=== PATIENT | female | born 1950 | race Caucasian/White ===

== ENCOUNTER → 2019-04-20 15:42 | Outpatient (CLI) | payer MEDICARE, SELFPAY ==
[2019-04-20 16:57] LABS: EXAGEN MAILED SPECIMEN
== END ==
PROVIDERS: Family Provider Family Medicine; PCP Family Medicine; Referring Provider Internal Medicine Rheumatology; Visit Provider Internal Medicine Rheumatology
DX: M06.4 Inflammatory polyarthropathy (principal); I10 Essential (primary) hypertension; E78.5 Hyperlipidemia, unspecified; E03.9 Hypothyroidism, unspecified; M21.40 Flat foot [pes planus] (acquired), unspecified foot; K51.90 Ulcerative colitis, unspecified, without complications; R76.8 Other specified abnormal immunological findings in serum
CPT/HCPCS: 36415

== ENCOUNTER → 2019-11-30 13:13 | Outpatient (CLI) | payer MEDICARE, SELFPAY ==
--- NOTE | 2019-11-30 13:18 | CT_ITS ---
STUDY: CT MAXILLOFACIAL SINUSES REASON FOR EXAM: Female, 69 years old. SINUSITIS -- SURG- SINUS X30 YRS AGO RADIATION DOSAGE (If Supplied By Facility): CTDIvol = ( 33.45 ) mGy, DLP = ( 776.37 ) mGycm TECHNIQUE: The patient was scanned in a multi detector CT scanner. High resolution axial imaging was performed without the administration of intravenous contrast material. Sagittal and coronal images were reconstructed. Individualized dose optimization techniques were used for this CT. COMPARISON: None. FINDINGS: Evidence of bilateral antrectomies. FRONTAL SINUSES: Normal aeration, without mucosal inflammatory disease. ETHMOIDAL SINUSES: Normal aeration, without mucosal inflammatory disease. MAXILLARY SINUSES: Normal aeration, without mucosal inflammatory disease. SPHENOIDAL SINUSES: Normal aeration, without mucosal inflammatory disease. There is patency of the bilateral maxillary infundibuli with normal uncinate processes, ethmoid bullae, and hiatus semilunaris. Normal bilateral middle turbinates. Normal bilateral inferior turbinates. Normal midline nasal septum. There is patency of the bilateral nasal airways. The visualized osseous structures are normal. The visualized bilateral orbital contents are normal. CT/Sinus/Facial Bone IMPRESSION: Normal CT examination of the maxillofacial sinuses. Electronically Signed: Randell Carpenter MD at 13:54 EDT , Service support ,
== END ==
PROVIDERS: PCP Family Medicine; Referring Provider Otolaryngology; Visit Provider Otolaryngology
DX: J32.9 Chronic sinusitis, unspecified (principal)
CPT/HCPCS: 70486

== ENCOUNTER → 2019-12-25 10:31 | Outpatient (CLI) | payer MEDICARE, SELFPAY | PROVIDERS: PCP Family Medicine; Referring Provider Otolaryngology; Visit Provider Otolaryngology | DX: Z11.59 Encounter for screening for other viral diseases (principal) | CPT/HCPCS: 87635; C9803; U0003 ==

== ENCOUNTER → 2021-02-01 12:49 | Outpatient (CLI) | payer MEDICARE, SELFPAY ==
--- NOTE | 2021-02-01 12:50 | CT_ITS ---
STUDY: CT ABDOMEN AND PELVIS WITH CONTRAST REASON FOR EXAM: Female, 70 years old. 18 month history of abdominal pain. RADIATION DOSAGE (If Supplied By Facility): CTDIvol = ( 10.92 ) mGy, DLP = ( 729.54 ) mGycm TECHNIQUE: Transaxial images were obtained from the dome of the diaphragm to the symphysis pubis with oral contrast. Oral and amp; IV Readi-CAT and amp; 100mL Isovue-300 was administered. Sagittal and coronal images were reconstructed. Individualized dose optimization techniques were used for this CT. COMPARISON: None. FINDINGS: The visualized lung bases are unremarkable. The visualized portions of the heart are within normal limits. Normal liver. There are surgical clips in the gallbladder fossa consistent with a prior cholecystectomy. Normal spleen. Normal pancreas. Normal bilateral adrenal glands. Normal right kidney. Normal left kidney. There is a small hiatal hernia. Normal small intestine. Findings suggestive of a colitis of the rectosigmoid colon and descending colon. The appendix is visualized and appears normal. There is scattered atherosclerotic calcification of the abdominal aorta, without a demonstrated aneurysm. Normal inferior vena cava. Normal retroperitoneum. Normal urinary bladder. There is absence of the uterus consistent with a prior hysterectomy. There is a small umbilical hernia containing fat. There are diffuse degenerative changes of the visualized lumbar spine. CT/Abdomen/Pelvis W IV Cont ONLY IMPRESSION: Findings suggestive of a colitis involving the left hemicolon. Clinical correlation is suggested. Electronically Signed: Mainor Little MD at 14:12 EDT , Service support ,
[2021-02-01 13:06] LABS: CREATININE FINGERSTICK 0.9 mg/dL (0.55-1.02); EGFR FINGERSTICK > 60.0000 mL/min (>60)
== END ==
PROVIDERS: PCP Family Medicine; Referring Provider Internal Medicine Gastroenterology; Visit Provider Internal Medicine Gastroenterology
DX: R10.9 Unspecified abdominal pain (principal)
CPT/HCPCS: 74177; Q9967

== ENCOUNTER 2021-02-15 08:58 | Day surgery (SDC) | payer MEDICARE, SELFPAY ==
[2021-02-15] MEDS: Lactated Ringers 1,000 ML 15 ML IV (09:10)
[2021-02-15 09:26] VITALS: BP 136/69; PULSE 81; RESP 16; TEMP 36; O2SAT 98; BMI 24.5
--- NOTE | 2021-02-15 10:00 | COLBX_PTH ---
PATIENT: CLAIR COELLO LOC: EN U#:[id number] AGE/SX: 70/F ROOM: RE02/15/[address]: Dr. Edwin Robledo DO : 1950 BED: DIS: 02/15/2021 SPEC #: [id number] RECD: 02/15/21 12:06 STATUS: HEATHER REErnie #: [id number] MARINO: 02/15/21 10:[address]: Edwin Robledo DEPT: SURGICAL PATHOLOGY RECD BY: Liz Taylor ENTERED: 02/15/21 13:41 SP TYPE: COLON BX OTHR DR: Dr. Quintin Murphy MD Tissues: A - Transverse colon B - Ileum, NOS C - COLON BIOPSY Procedures: Surgery Specimen Level IV HEADER OPERATION: Colonoscopy (MAC) PRE-OP DIAGNOSIS: Abdominal pain TISSUE SUBMITTED: A - Transverse colon polyp, B - Terminal ileum biopsy, C - Random colon biopsies MICROSCOPIC DIAGNOSIS A. Transverse colon polyp, biopsy: Fragments of inflammatory pseudopolyp. B. Terminal ileum, biopsy: Fragments of small intestinal mucosa, no pathologic diagnosis. C. Lung, random biopsy: Fragments of colonic mucosa, no pathologic diagnosis. MARY:deny 02/16/2021 MICROSCOPIC DESCRIPTION Slides are reviewed. GROSS DESCRIPTION A - Received in fixative is one container labeled with the patient's name and designated transverse colon polyp. The specimen consists of multiple irregular fragments of light elmore soft tissue that in aggregate measure 1 x 0.3 x 0.1 cm. The specimen is totally submitted in one cassette. B - Received in fixative is one container labeled with the patient's name and designated terminal ileum biopsy. The specimen consists of multiple irregular fragments of light elmore soft tissue that in aggregate measure 1 x 0.2 x 0.1 cm. The specimen is totally submitted in one cassette. C - Received in fixative is one container labeled with the patient's name and designated random colon biopsy. The specimen consists of multiple irregular fragments of light elmore soft tissue that in aggregate measure 2.5 x 1 x 0.1 cm. The specimen is totally submitted in one cassette. / MARY:deny 02/15/21 TC:5 CPT: 17360 x3
--- NOTE | 2021-02-15 10:12 | PCM.HP.BLA ---
History and Physical Date of Admission: 02/15/21 Allergies levofloxacin [From Levaquin] Allergy (Intermediate, Verified 01/19/21 13:32) Nausea Sulfa (Sulfonamide Antibiotics) Allergy (Intermediate, Verified 01/19/21 13:32) Nausea, vomiting, diarrhea sulfasalazine [From Azulfidine] Allergy (Intermediate, Verified 01/19/21 13:32) Nausea, Vomiting, diarrhea Medications amlodipine 2.5 mg tablet 2.5 mg PO DAILY 01/18/21 [History Confirmed 01/19/21] calcium carbonate 500 mg (1,250 mg)-vitamin D3 125 unit tablet 1 tab PO DAILY 01/18/21 [History Confirmed 01/19/21] cholecalciferol (vitamin D3) 50 mcg (2,000 unit) capsule 50 mcg PO DAILY 01/18/21 [History Confirmed 01/19/21] clonazepam 1 mg tablet 1 mg PO QHS 01/18/21 [History Confirmed 01/19/21] hyoscyamine sulfate 0.125 mg disintegrating tablet 0.125 mg PO BID-QID PRN 01/18/21 [History Confirmed 01/19/21] multivitamin 1 tab PO DAILY 01/18/21 [History Confirmed 01/19/21] omeprazole 40 mg capsule,delayed release 40 mg PO BID 01/18/21 [History Confirmed 01/19/21] ondansetron 4 mg disintegrating tablet 4 mg PO Q8H 01/18/21 [History Confirmed 01/19/21] simvastatin 20 mg tablet 20 mg PO QHS 01/18/21 [History Confirmed 01/19/21] thyroid (pork) 30 mg tablet 30 mg PO DAILY 01/18/21 [History Confirmed 01/19/21] [facility] Medical History (Updated 01/19/21 @ 14:[address] Pineda Friend, DO) Abdominal pain Abdominal pain Asthmatic bronchitis Back pain Cervical radiculopathy Coronary vasospasm Hypercalcemia Hyperlipidemia Hypothyroid IBS (irritable bowel syndrome) Lumbosacral radiculitis Menopause Metabolic syndrome Migraine Nasal polyps Osteopenia Shoulder impingement syndrome Ulcerative colitis Surgical History History of cardiac cath History of dilation and curettage History of hysterectomy HPI HPI Details: CLAIR COELLO, is a 70 F who presents to the office today for the evaluation of abdominal pain. Her symptoms began last August 2019. she began having heartburn and diarrhea with abdominal pain and cramping and nausea that was continuous. She saw a gastroenterology who has prescribed many medications to address diarrhea. She has never had a CAT scan of her abdomen pelvis. Heartburn resolved after cholecystectomy 09/2020. Continued symptoms include abdominal pain, cramping and nausea with diarrhea occurring every few weeks lasting for about a day but causes insomnia. She has not had stool studies studies for enteric pathogens. Her colonoscopy and EGD performed in the last year and she reports findings were normal. Gastric emptying showed she empties too quickly. History of ulcerative colitis diagnosed 1987. Medications that she has tried without effect include lansoprozol, omeprazole, pepcid, viberzi, xifaxan, amitriptyline, cymbalta, nortriptyline. ROS Const Constitutional: Positive for fatigue Eyes Eyes: Positive for irritation ENT ENT: Positive for tinnitus Gastro GI: Positive for abdominal pain, bloating, heartburn and nausea/dyspepsia Musc Musculoskeletal: Positive for joint pain, joint swelling, muscle cramps and Arthritis Endo Endocrine: Positive for cold intolerance, fatigue and heat intolerance Michael/Lymp Hematologic/Lymphatic: Positive for easy bruising Exam Const General: cooperative and comfortable Nutritional Appearance: average body habitus and well nourished [facility] Head: normal to inspection Ears: hearing grossly normal bilaterally Nose: external nose normal Face and sinus: normal facial exam Mouth: oral mucosae normal Throat: posterior oropharynx normal Eyes General: appearance normal, both eyes and all related structures Neck Neck: normal visual inspection Chest Chest palpation & inspection: normal inspection of the chest and normal palpation of entire chest wall Resp Effort & Inspection: normal respiratory effort Auscultation: Bilateral: Clear to Auscultation Cardio Palpation: normal PMI Rate: regular rate Rhythm: regular rhythm GI Inspection: normal to inspection Auscultation: normal bowel sounds Percussion: normal to percussion Palpation: no hepatosplenomegaly Skin General: no rashes or lesions noted Neuro General: patient alert Extrem General: normal to inspection Psych Affect: normal affect Assessment and Plan Assessment and Plan (1) Abdominal pain: Status: Acute Orders: Orders: Abdomen/Pelvis W IV Cont ONLY Today Comprehensive Metabolic Profil Today CRP Today LDH Today CBC W/Diff, Automated Today Erythrocyte Sed Rate Today Plan - Dr. Pineda Friend, DO: I suspect that she does have IBS with diarrhea or mixed constipation or diarrhea. She does take probiotics and some digestive enzymes that have been helping her with all her issues and regarding her diarrhea. However she still gets abdominal pain. Lymph exam she does have a little bit of tenderness in the bilateral lower quadrants however but no alarm signs such as rebound or guarding were seen. We will get a CT scan abdomen pelvis along with an ESR and CRP and CBC and CMP. (2) Abdominal pain: Status: Acute Orders: Orders: Abdomen/Pelvis W IV Cont ONLY Today Comprehensive Metabolic Profil Today CRP Today LDH Today CBC W/Diff, Automated Today Erythrocyte Sed Rate Today This is an updated H&P from the patient was seen in office.
[2021-02-15 10:55] VITALS: BP 125/62; BP 136/69; PULSE 74; RESP 16; TEMP 35.9; O2SAT 100
--- NOTE | 2021-02-15 10:55 | OP.COLON_ITS ---
Patient Name: Kmi Enrique Procedure Date: 02/15/2021 10:19 AM Date of : 1950 Age: 70 Procedure: Colonoscopy Indications: Chronic diarrhea Providers: Edwin Robledo DO Medicines: See the Anesthesia note for documentation of the administered medications Patient Profile: This is a 70 year old female. Refer to note in patient chart for documentation of history and physical. Last Colonoscopy: 3 years ago. Complications: No immediate complications. Procedure: Pre-Anesthesia Assessment: - Prior to the procedure, a History and Physical was performed, and patient medications and allergies were reviewed. The patient is competent. The risks and benefits of the procedure and the sedation options and risks were discussed with the patient. All questions were answered and informed consent was obtained. Patient identification and proposed procedure were verified by the physician in the pre-procedure area. Mental Status Examination: alert and oriented. Airway Examination: normal oropharyngeal airway and neck mobility. Respiratory Examination: clear to auscultation. CV Examination: normal. Prophylactic Antibiotics: The patient does not require prophylactic antibiotics. Prior Anticoagulants: The patient has taken no previous anticoagulant or antiplatelet agents. ASA Grade Assessment: II - A patient with mild systemic disease. After reviewing the risks and benefits, the patient was deemed in satisfactory condition to undergo the procedure. The anesthesia plan was to use moderate sedation / analgesia (conscious sedation). Immediately prior to administration of medications, the patient was re-assessed for adequacy to receive sedatives. The heart rate, respiratory rate, oxygen saturations, blood pressure, adequacy of pulmonary ventilation, and response to care were monitored throughout the procedure. The physical status of the patient was re-assessed after the procedure. After I obtained informed consent, the scope was passed under direct vision. Throughout the procedure, the patient's blood pressure, pulse, and oxygen saturations were monitored continuously. The pediatric colonoscope was introduced through the anus and advanced to the terminal ileum. The colonoscopy was performed without difficulty. The patient tolerated the procedure well. The quality of the bowel preparation was adequate, except for the cecal cap. There was some liquid and a hard stool that could not be evacuated. Moderate Sedation: Moderate (conscious) sedation was administered by the endoscopy nurse and supervised by the endoscopist. The patient's oxygen saturation, heart rate, blood pressure and response to care were monitored. Total physician intraservice time was 15 minutes. Scope In: 10:32:15 AM Scope Withdrawal Time 0 hours 8 minutes 33 seconds Scope Out: 10:50:18 AM Total Procedure Duration Time 0 hours 18 minutes 3 seconds Findings: The perianal and digital rectal examinations were normal. An area of moderately congested mucosa was found in the sigmoid colon. This was biopsied with a cold forceps for histology. Verification of patient identification for the specimen was done. Estimated blood loss was minimal. The terminal ileum appeared normal. This was biopsied with a cold forceps for histology. Verification of patient identification for the specimen was done. Estimated blood loss was minimal. The exam was otherwise without abnormality on direct and retroflexion views. A 5 mm polyp was found in the transverse colon. The polyp was sessile. The polyp was removed with a hot snare. Resection and retrieval were complete. Verification of patient identification for the specimen was done. Estimated blood loss was minimal. Impression: - Congested mucosa in the sigmoid colon. Biopsied. - The examined portion of the ileum was normal. Biopsied. - The examination was otherwise normal on direct and retroflexion views. - One 5 mm polyp in the transverse colon, removed with a hot snare. Resected and retrieved. Recommendation: - Repeat colonoscopy in 5 years for surveillance. - Return to GI office in 2 weeks. - Continue present medications. Procedure Code(s): --- Professional --- 19179, 59, Colonoscopy, flexible; with removal of tumor(s), polyp(s), or other lesion(s) by snare technique 58753, 59, Colonoscopy, flexible; with biopsy, single or multiple G0500, Moderate sedation services provided by the same physician or other qualified health acute care physical therapist performing a gastrointestinal endoscopic service that sedation supports, requiring the presence of an independent trained observer to assist in the monitoring of the patient's level of consciousness and physiological status; initial 15 minutes of intra-service time; patient age 5 years or older (additional time may be reported with 53843, as appropriate) Diagnosis Code(s): --- Professional --- K63.89, Other specified diseases of intestine D12.3, Benign neoplasm of transverse colon (hepatic flexure or splenic flexure) CPT copyright 2017 [employer]. All rights reserved. The codes documented in this report are preliminary and upon telephone triage nurse review may be revised to meet current compliance requirements. Edwin Robledo DO 02/15/2021 10:54:40 AM This report has been signed electronically. Number of Addenda: 1 Note Initiated On: 02/15/2021 10:19 AM Addendum Number: 1 Addendum Date: 12/15/2021 6:10:03 AM MAC was used instead of moderate sedation for this patient. Edwin Robledo DO 12/15/2021 6:10:16 AM This report has been signed electronically.
--- NOTE | 2021-02-15 10:55 | OP.CCLET_ITS ---
12/15/2021 Quintin Murphy Re : Colonoscopy procedure for Kim Enrique Dear Jeffrey This procedure was performed on Monday, February 15, 2021. My impressions and recommendations are as follows: Impressions : - Congested mucosa in the sigmoid colon. Biopsied. - The examined portion of the ileum was normal. Biopsied. - The examination was otherwise normal on direct and retroflexion views. - One 5 mm polyp in the transverse colon, removed with a hot snare. Resected and retrieved. Recommendations : - Repeat colonoscopy in 5 years for surveillance. - Return to GI office in 2 weeks. - Continue present medications. My findings are described in the full procedure note, which is enclosed. If I can be of further assistance, please feel free to contact me at . Sincerely, Edwin Friend, 02/15/2021 10:54:40 AM This report has been signed electronically.
[2021-02-15 11:00] VITALS: BP 126/70; BP 136/69; PULSE 71; RESP 16; O2SAT 100
[2021-02-15 11:05] VITALS: BP 128/67; BP 136/69; PULSE 73; RESP 16; O2SAT 100
[2021-02-15 11:10] VITALS: BP 136/69; BP 138/69; PULSE 79; RESP 16; TEMP 36.3; O2SAT 100
[2021-02-15 11:47] VITALS: BP 136/69
== END 2021-02-15 11:50 | disposition home or self-care (01) ==
LOC: EN 09:00 → AC 09:01
PROVIDERS: PCP Family Medicine; Referring Provider Family Medicine; Visit Provider Internal Medicine Gastroenterology
PROC: 0DJD8ZZ Inspection of Lower Intestinal Tract, Via Natural or Artificial Opening Endoscopic (ICD-10-PCS; CPT 45378; principal; 2021-02-15 09:55)
DX: K63.5 Polyp of colon (principal); E78.00 Pure hypercholesterolemia, unspecified; M54.12 Radiculopathy, cervical region; E03.9 Hypothyroidism, unspecified; K58.9 Irritable bowel syndrome, unspecified; I10 Essential (primary) hypertension; M06.4 Inflammatory polyarthropathy; Z79.899 Other long term (current) drug therapy
CPT/HCPCS: 45380; 45385; 88305; J7120; J2405

== ENCOUNTER → 2021-02-23 10:23 | Outpatient (CLI) | payer MEDICARE, SELFPAY ==
[2021-02-23 11:52] LABS: Erythrocyte Sedimentation Rate 12 mm/hr (0-30)
[2021-02-23 11:56] LABS: Absolute Lymphocyte Count 2.48 X10^3/uL (0.83-4.51); Absolute Neutrophil Count 10.1 X10^3/uL (2.0-7.7); Basophil# 0.02 X10^3/uL; Basophil% 0.1 % (0-1); Eosinophil# 0.09 X10^3/uL; Eosinophils% 0.6 % (0-5); Hematocrit 41.4 % (37-47); Hemoglobin 12.9 g/dL (12.0-15.0); Lymphocyte # 2.48 X10^3/ul (0.83-4.51); Lymphocyte % 17.9 % (19-41); Mean Corp Hgb Conc 31.2 g/dL (32-36); Mean Corpuscular Hgb 27.9 pg (27.0-32.0); Mean Corpuscular Volume 89.4 fL (81-99); Monocyte% 7.2 % (0-10); NRBC Flagged by Analyzer 0 % (0-5); Neutrophil # 10.12 X10^3/uL (2.7-7.7); Neutrophil % 73.1 % (47-70); Platelet Count 385 K/mm3 (150-450); RBC Distribution Width CV 14.6 % (11.6-14.6); RBC Distribution Width SD 46.6 fl (35.1-43.9); Red Blood Count 4.63 M/mm3 (4.2-5.4); White Blood Count 13.9 K/mm3 (4.4-11.0)
[2021-02-23 12:23] LABS: ALB/GLOB Ratio 0.9 RATIO (0.9-2.4); AST(SGOT) 16 U/L (15-37); Alanine Aminotransfer ALT/SGPT 34 U/L (13-56); Albumin, Serum 3.3 g/dL (3.2-5.0); Alkaline Phosphatase 80 U/L (45-117); Anion Gap 7 (5-15); BUN 19 mg/dL (7-18); BUN/Creat Ratio 22.7 RATIO (10-20); CRP < 2.90 mg/L (0.0-3.0); Calcium,Total 9.1 mg/dL (8.5-10.1); Chloride 105 mmol/L (98-107); Creatinine, Serum 0.84 mg/dL (0.55-1.02); EST Glomerular Filtration Rate 72 mL/min (>60); Est Glom Filt Rate - Afr Amer 87 mL/min (>60); Globulin 3.5 g/dL (2.2-4.2); Glucose 99 mg/dL (74-106); LDH 229 U/L (84-246); Potassium 3.6 mmol/L (3.5-5.1); Protein, Total 6.8 g/dL (6.4-8.2); Sodium Level 141 mmol/L (136-145)
== END ==
PROVIDERS: PCP Family Medicine; Referring Provider Internal Medicine Gastroenterology; Visit Provider Internal Medicine Gastroenterology
DX: R10.9 Unspecified abdominal pain (principal); K51.90 Ulcerative colitis, unspecified, without complications
CPT/HCPCS: 36415; 80053; 83615; 85025; 85652; 86140

== ENCOUNTER → 2022-02-02 | Outpatient (CLI) | payer MEDICARE, SELFPAY ==
[2022-02-12 08:07] LABS: Alternaria alternata <0.10 kU/L (Class 0); Aspergillus fumigatus <0.10 kU/L (Class 0); Bahia Grass <0.10 kU/L (Class 0); Beef <0.10 kU/L (Class 0); Bermuda Grass <0.10 kU/L (Class 0); Bluegrass, Kentucky <0.10 kU/L (Class 0); Cat Hair/Dander, Standard <0.10 kU/L (Class 0); Cedar, Mountain <0.10 kU/L (Class 0); Cladosporium herbarum <0.10 kU/L (Class 0); Cockroach, American <0.10 kU/L (Class 0); Corn <0.10 kU/L (Class 0); D farinae Mite <0.10 kU/L (Class 0); D pteronyssinus <0.10 kU/L (Class 0); Dog Epithelia <0.10 kU/L (Class 0); Egg, Whole 0.26 kU/L (Class 0/I); Elm, American White <0.10 kU/L (Class 0); Hazelnut Tree <0.10 kU/L (Class 0); Hickory, White <0.10 kU/L (Class 0); Johnson Grass <0.10 kU/L (Class 0); Maple/Box Elder <0.10 kU/L (Class 0); Milk (Cow) 0.34 kU/L (Class I); Mucor racemosus <0.10 kU/L (Class 0); Mugwort <0.10 kU/L (Class 0); Mulberry, White <0.10 kU/L (Class 0); Nettle <0.10 kU/L (Class 0); Oak, White <0.10 kU/L (Class 0); Peanut <0.10 kU/L (Class 0); Penicillium chrysogen <0.10 kU/L (Class 0); Pigweed, Rough <0.10 kU/L (Class 0); Plantain, English <0.10 kU/L (Class 0); Pork <0.10 kU/L (Class 0); Ragweed, Short/Common <0.10 kU/L (Class 0); Sheep Sorrel(Dock) <0.10 kU/L (Class 0); Soybean <0.10 kU/L (Class 0); Stemphylium herbarum <0.10 kU/L (Class 0); Sweet Gum <0.10 kU/L (Class 0); Sycamore, American <0.10 kU/L (Class 0); Wheat 0.14 kU/L (Class 0/I)
[2022-02-13 18:30] LABS: Chocolate <0.10 kU/L (Class 0)
== END | disposition home or self-care (01) ==
LOC: LAB 11:35
PROVIDERS: PCP Family Medicine; Visit Provider Internal Medicine Gastroenterology
DX: R19.7 Diarrhea, unspecified (principal); R10.9 Unspecified abdominal pain
CPT/HCPCS: 36415; 86003; 86005

== ENCOUNTER → 2022-08-03 | Outpatient (CLI) | payer MEDICARE, SELFPAY ==
--- NOTE | 2022-08-03 11:39 | NM_ITS ---
CLINICAL: 72-year-old female with history of abdominal pain, bloating, nausea and clinical gastroparesis. SEMI-SOLID PHASE 99m Tc SULFUR COLLOID GASTRIC EMPTYING STUDY COMPARISON: None available FINDINGS: The patient was administered 1.1 mCi of 99m Tc sulfur colloid mixed with oatmeal and consumed per os. Image acquisitions in the anterior-posterior projections were obtained for 60 minutes. There is prompt visualization of the stomach. There is no gastroesophageal reflux identified. The T ? raw data emptying was calculated to be 38.68 minutes, (Normal: 12-56 minutes). NM/Gastric Emptying Study IMPRESSION: 1. NORMAL 99m Tc sulfur colloid semi-solid phase (oatmeal) gastric emptying imaging examination. A. There is normal and preserved semi-solid phase gastric emptying compared to normal controls. (Zoya et al, J Nucl Med Tech 38: 186, 2010). Electronically Signed: Nathanael Robertson, at 11:12 EDT ,
== END | disposition home or self-care (01) ==
PROVIDERS: PCP Family Medicine; Referring Provider Internal Medicine Gastroenterology; Visit Provider Internal Medicine Gastroenterology
DX: K31.84 Gastroparesis (principal)
CPT/HCPCS: 78264; A9541

== ENCOUNTER → 2023-11-20 | Outpatient (CLI) | payer MEDICARE, SELFPAY ==
--- NOTE | 2023-11-20 15:44 | CT_ITS ---
INDICATION: CHRONIC SINUSITIS EXAMINATION: CT FACIAL BONES - CT Maxillofacial W/O Contrast Injection TECHNIQUE: Helically acquired images were obtained of the facial bones. A radiation dose optimization technique was used for this scan. The protocol utilizes one or more of the following dose reduction techniques: automated exposure control, adjustment of mA and/or kV according to patient size,and/or use of iterative reconstruction technique. IV Contrast dosage and agent: None. RADIATION DOSAGE (If Supplied By Facility): CTDIvol = ( 33.06 ) mGy, DLP = ( 837.98 ) mGycm COMPARISON: Prior study dated: 11/30/2019 FINDINGS: SOFT TISSUES: No focal subcutaneous swelling. No discrete fluid collections. VISUALIZED PARANASAL SINUSES: There is near complete opacification of the ethmoid air cells. Opacified right frontal sinus with associated cortical thickening. The appearance is similar to the 2019 study. The left frontal sinus is clear. The sphenoid sinuses and drainage pathways are clear. The left maxillary sinus is clear status post [facility] resection. Right-sided [facility] resection as well with mild mucoperiosteal thickening anteriorly. VISUALIZED MASTOID AIR CELLS: Clear. FACIAL BONES, MANDIBLE AND TMJs: No displaced facial bone fracture. No lytic or blastic abnormality. VISUALIZED DENTITION: No periodontal osseous erosion. ORBITAL CONTENTS: Both globes, extraocular muscles and retrobulbar fat appear unremarkable. CT/Sinus/Facial Bone IMPRESSION: Similar appearance to previous imaging. Chronic opacification of the bilateral ethmoid air cells and right frontal sinus with cortical thickening. Electronically Signed: Grant Gallo MD at 10:13 EDT ,
== END | disposition home or self-care (01) ==
LOC: CT 15:42
PROVIDERS: PCP Family Medicine; Referring Provider Otolaryngology; Visit Provider Otolaryngology
DX: J32.8 Other chronic sinusitis (principal)
CPT/HCPCS: 70486